=== PATIENT | female | born 1985 | race Caucasian/White ===

== ENCOUNTER → 2018-08-14 09:04 | Outpatient (CLI) | payer OTHER, SELFPAY | PROVIDERS: PCP Family Medicine; Visit Provider Family Medicine | DX: G56.02 Carpal tunnel syndrome, left upper limb (principal); G56.01 Carpal tunnel syndrome, right upper limb | CPT/HCPCS: 95885; 95886; 95911 ==

== ENCOUNTER → 2020-09-01 14:55 | Outpatient (CLI) | payer OTHER, SELFPAY ==
--- NOTE | 2020-09-01 15:02 | DI.RAD.S_ITS ---
PROCEDURE: XR CERVICAL SPINE 2V OR 3V INDICATIONS: BACK PAIN TECHNIQUE: 3 view(s) of the cervical spine were acquired. COMPARISON: None. FINDINGS: Bones: No fracture. Straightening of the normal lordotic curvature. Mild narrowing of the C7-T1 disc space otherwise the cervical spaces appear grossly preserved. Mild levocurvature. Soft tissues: No prevertebral soft tissue swelling. IMPRESSION: Straightening of the normal lordotic curvature. Mild levocurvature. Mild C7-T1 spondylosis. Dictated by: Franko Aviles M.D. on 09/01/2020 at 15:53 Approved by: Franko Aviles M.D. on 09/01/2020 at 15:55
--- NOTE | 2020-09-01 15:02 | DI.RAD.S_ITS ---
PROCEDURE: XR LUMBAR SPINE 2-3V INDICATIONS: LOW BACK PAIN TECHNIQUE: 3 views of the lumbar spine were acquired. COMPARISON: None. FINDINGS: Bones: No fractureMultilevel degenerative endplate sclerosis and spurring. Diffuse facet arthropathy. Minimal levocurvature Soft tissues: Overlying bowel gas pattern is normal. No suspicious soft tissue calcifications. IMPRESSION: Minimal levocurvature and discogenic changes, otherwise grossly unremarkable examination. Dictated by: Franko Aviles M.D. on 09/01/2020 at 15:55 Approved by: Franko Aviles M.D. on 09/01/2020 at 15:56
--- NOTE | 2020-09-01 15:02 | DI.RAD.S_ITS ---
PROCEDURE: XR THORACIC SPINE 2V INDICATIONS: BACK PAIN TECHNIQUE: 2 views of the thoracic spine were acquired. COMPARISON: None. FINDINGS: Bones: No fracture. Mild discogenic changes. Soft tissues: No paravertebral stripe thickening. IMPRESSION: No fracture Dictated by: Franko Aviles M.D. on 09/01/2020 at 16:27 Approved by: Franko Aviles M.D. on 09/01/2020 at 16:28
== END ==
PROVIDERS: PCP Family Medicine; Referring Provider Family Medicine; Visit Provider Family Medicine
DX: M47.23 Other spondylosis with radiculopathy, cervicothoracic region (principal); M47.26 Other spondylosis with radiculopathy, lumbar region
CPT/HCPCS: 72040; 72070; 72100

== ENCOUNTER → 2020-10-17 10:32 | Outpatient (CLI) | payer OTHER, SELFPAY ==
--- NOTE | 2020-10-17 | DI.RAD.S_ITS ---
PROCEDURE: XR CHEST 3V INDICATIONS: RIB PAIN TECHNIQUE: 2 views of the chest were acquired. COMPARISON: [facility], CR, XR RIBS LT 2V, 10/17/2020, 11:31. FINDINGS: Surgical changes and devices: None. Lungs and pleura: Lungs are clear. No pleural effusions or pneumothorax. Mediastinum: Mediastinal contours are normal. Heart size is normal. Bones and chest wall: Please see comparison rib series for description of left-sided fractures. IMPRESSION: No pneumothorax. Low lung volumes. Scattered subsegmental atelectasis and/or scarring. No focal consolidation. Left rib fractures , please see dedicated rib series for further characterization. Dictated by: Franko Aviles M.D. on 10/17/2020 at 13:37 Approved by: Franko Aviles M.D. on 10/17/2020 at 13:40
--- NOTE | 2020-10-17 | DI.RAD.S_ITS ---
PROCEDURE: XR RIBS LT 2V INDICATIONS: RIB PAIN TECHNIQUE: 2 views of the left ribs were acquired. COMPARISON: None. FINDINGS: Surgical changes and devices: None. Bones and chest wall: Mildly displaced posterior fractures of the left 9th and 10th ribs. There is also slight angulation of the left anterior 10th rib suggestive of additional fracture Lungs and pleura: The visualized lung appears clear. No pleural effusions or pneumothorax are visible. IMPRESSION: Left 9th and 10th rib fractures, with possible segmental appearance at the 10th rib as above. Dictated by: Franko Aviles M.D. on 10/17/2020 at 13:40 Approved by: Franko Aviles M.D. on 10/17/2020 at 13:42
== END ==
PROVIDERS: PCP Family Medicine; Referring Provider Family Medicine; Visit Provider Family Medicine
DX: S22.42XA Multiple fractures of ribs, left side, initial encounter for closed fracture (principal); X58.XXXA Exposure to other specified factors, initial encounter
CPT/HCPCS: 71047; 71110

== ENCOUNTER → 2022-10-09 11:18 | Outpatient (CLI) | payer OTHER, SELFPAY | PROVIDERS: PCP Family Medicine; Visit Provider Physician Assistant | DX: R30.0 Dysuria (principal); Z87.440 Personal history of urinary (tract) infections | CPT/HCPCS: 87077; 87086; 87186 ==

== ENCOUNTER → 2022-11-22 14:21 | Outpatient (CLI) | payer OTHER, SELFPAY ==
--- NOTE | 2022-11-22 | DI.US.S_ITS ---
PROCEDURE: US PELVIC COMPLETE INDICATIONS: CRAMPING TECHNIQUE: Real-time scanning was performed of the pelvic organs, with image documentation. Additional endovaginal scanning was necessary due to incomplete visualization of the adnexal and endometrial structures by transabdominal scanning. COMPARISON: None. FINDINGS: Uterus: Uterus is anteverted and normal in size at 9.5 x 4.9 x 3.7 cm. The myometrium is homogeneous. The endometrium measures 12.8 mm combined thickness. Ovaries: The right ovary measures 6.0 x 3.2 x 2.9 cm. The left ovary measures 2.8 x 1.3 x 1.5 cm. There is a cluster of 2 dominant cyst in right ovary measuring 2.5 cm. There is a slightly thick-walled cyst in the left ovary measuring 1.4 cm, likely a collapsing corpus luteum. Less than 12 follicles can be seen in each ovary. No adnexal masses are seen. Other: No pathologic free abdominal or pelvic fluid. IMPRESSION: 1. Normal sonographic appearance of uterus. 2. 2 dominant right ovarian follicles measuring up to 2.5 cm. 3. A collapsing corpus luteal cyst in left ovary. We strive to produce accurate, complete, and clear reports of imaging services. To assist us in improving patient care, this report was composed using standard report templates and voice recognition software. Therefore, it may contain abnormal punctuation, insertions and/or omissions. Occasional wrong-word or sound-alike substitutions may occur. Though we review the report and make efforts to correct it, we do recommend that the report be read carefully in proper context to recognize any text inaccuracies. Dictated by: Amie Archer M.D. on 11/22/2022 at 15:52 Approved by: Amie Archer M.D. on 11/22/2022 at 15:57
== END ==
PROVIDERS: PCP Family Medicine; Referring Provider Registered Nurse; Visit Provider Registered Nurse
DX: N83.12 Corpus luteum cyst of left ovary (principal); R10.2 Pelvic and perineal pain
CPT/HCPCS: 76830; 76856

== ENCOUNTER → 2023-01-08 10:02 | Outpatient (CLI) | payer OTHER, SELFPAY ==
[2023-01-08 10:46] LABS: Add Manual Diff / Slide Review NO; Basophils Absolute Auto 0 /uL (0-100); Basophils Percent Auto 0.6 % (0-2); Eosinophils Absolute Auto 100 /uL (0-450); Eosinophils Percent Auto 1.1 % (2-4); Hematocrit 36.1 % (36-46); Hemoglobin 12.5 g/dL (12.0-16.0); Lymphocytes Absolute Auto 1900 /uL (1100-4500); Lymphocytes Percent Auto 37.7 % (25-40); Mean Corpuscular HGB Conc 34.5 % (30-36); Mean Corpuscular Hemoglobin 30.4 PG (26-34); Monocytes Absolute Auto 400 /uL (0-900); Monocytes Percent Auto 7.4 % (3-14); Neutrophils Absolute Auto 2600 /uL (1500-7000); Neutrophils Percent Auto 53.2 % (50-75); Platelet Count 321 X10^3/uL (150-400); Red Blood Cell Count 4.11 X10^6/uL (4.0-5.2); Red Cell Distribution Width 12.2 % (11.6-14.8); White Blood Cell Count 4.9 X10^3/uL (4.5-11.0)
[2023-01-08 11:19] LABS: BUN Creatinine Ratio 24.2 (6-22); Blood Urea Nitrogen 15 mg/dL (7-17); Calcium 9.3 mg/dL (8.4-10.2); Carbon Dioxide 28 mmol/L (22-32); Chloride 103 mmol/L (98-107); Estimated Glomerular Filt Rate > 60 mL/min (>60); Glucose 90 mg/dL (70-100); HEMOLYSIS < 15 (0-50); Potassium 4.7 mmol/L (3.4-5.1); Sodium 139 mmol/L (137-145)
[2023-01-08 11:53] LABS: Ferritin 34 ng/mL (6-137)
[2023-01-08 17:46] LABS: HEMOLYSIS < 15 (0-50); Iron 58 ug/dL (37-170)
[2023-01-08 18:11] LABS: Percent Iron Saturation 14 % (15-50); Total Iron Binding Capacity 405 ug/dL (265-497); Transferrin 295 mg/dL (206-381)
== END ==
PROVIDERS: PCP Family Medicine; Referring Provider Family Medicine; Visit Provider Family Medicine
DX: N92.0 Excessive and frequent menstruation with regular cycle (principal); R00.0 Tachycardia, unspecified; Z01.812 Encounter for preprocedural laboratory examination
CPT/HCPCS: 36415; 80048; 82728; 83540; 83550; 85025

== ENCOUNTER → 2023-03-07 15:03 | Outpatient (CLI) | payer OTHER, SELFPAY ==
--- NOTE | 2023-03-07 15:04 | DI.MRI.S_ITS ---
PROCEDURE: MR HEAD/BRAIN WO/W CON INDICATIONS: numbness left face, trigeminal area for 1 week TECHNIQUE: Noncontrast sagittal T1 spin echo, axial T2 fast spin echo, axial FLAIR, axial gradient echo, axial diffusion and ADC through the brain. Axial/sagittal/coronal 3-D CISS, thin-slice axial T1 spin echo with fat saturation through the skull base. After the administration of contrast, axial and coronal thin-slice T1 spin echo with fat saturation through the skull base, axial and coronal and sagittal T1 spin echo with fat saturation through the brain. COMPARISON: None. FINDINGS: Image quality: Excellent. Trigeminal nerves: In this patient with this given history, scrutiny is given to the trigeminal nerves. The trigeminal nerves demonstrate a normal appearance, without masses or abnormal enhancement seen along their courses, including within the Meckel's caves. CSF spaces: Ventricles are normal in size and shape. No extra-axial fluid collections. Basal cisterns are patent. Brain: No intracranial bleeds or mass effects. No abnormal intracranial enhancement. Diffusion weighted images show no acute ischemic insults. Fisher-white matter interface is intact. Brainstem is normal. Normal intravascular flow voids are present. Skull and face: Calvarial marrow signal is normal. Orbits appear normal. Sinuses: Sinuses and mastoids appear clear. IMPRESSION: No imaging explanation is found for this patient's presenting symptoms. No significant abnormality of the trigeminal nerves can be seen. No masses or abnormal enhancement can be seen. Dictated by: Clarence Oh M.D. on 03/07/2023 at 15:23 Approved by: Clarence Oh M.D. on 03/07/2023 at 15:24
== END ==
PROVIDERS: PCP Family Medicine; Referring Provider Family Medicine; Visit Provider Family Medicine
DX: R20.0 Anesthesia of skin (principal); Z87.828 Personal history of other (healed) physical injury and trauma
CPT/HCPCS: 70553